=== PATIENT | male | born 1945 | race Native Hawaiian/Other Pacific Islander ===

== ENCOUNTER 2018-05-19 11:28 | Emergency (ER) | payer MEDICARE, OTHER ==
[~2018-05-19] VITALS: Ht 175.3 cm; Wt 73.0 kg
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
[2018-05-19] MEDS ORDERED: ATOR40TA PO (11:55)
[2018-05-19] MEDS ORDERED: ASPI81TA31 PO (11:55)
[2018-05-19] MEDS ORDERED: LISI-603 PO (11:55)
[2018-05-19] MEDS ORDERED: METO-356 PO (11:55)
[2018-05-19] MEDS ORDERED: APIX5TAB PO (11:55)
[2018-05-19] MEDS ORDERED: CEphaleXIN 500 MG CAPSULE PO ONE (12:15)
[2018-05-19] MEDS ORDERED: NEOMY/BACITRA/POLYMYXIN B OINT UD PACKET TP ONE ×2 (12:15→12:25)
[2018-05-19] MEDS ORDERED: LIDOCAINE HCL 1% 20 ML VIAL TP ONE (12:15)
[2018-05-19] MEDS ORDERED: CEphaleXIN 500 MG CAPSULE ONE (12:25)
[2018-05-19] MEDS ORDERED: ACETAMINOPHEN 325 MG TABLET PO ONE (13:30)
[2018-05-19] MEDS ORDERED: ACETAMINOPHEN 325 MG TABLET ONE (13:34)
--- NOTE | 2018-05-19 13:42 | NUR ---
Patient discharged to home in stable conditon. Written and verbal after care instructions given. Patient verbalizes understanding of instructions. PT D/C W/ PRESCRIPTIONS. ALL BELONGINGS W/ PT. PT SELF-AMBULATED W/O DIFFICULTY.
[2018-05-19 13:43] VITALS: BP 122/75
== END 2018-05-19 13:43 | disposition home or self-care (01) ==
LOC: ER 11:28
DX: S62.637B Displaced fracture of distal phalanx of left little finger, initial encounter for open fracture (principal); S61.213A Laceration without foreign body of left middle finger without damage to nail, initial encounter; S61.215A Laceration without foreign body of left ring finger without damage to nail, initial encounter; S61.217A Laceration without foreign body of left little finger without damage to nail, initial encounter; I48.91 Unspecified atrial fibrillation; Z79.82 Long term (current) use of aspirin; Z79.899 Other long term (current) drug therapy; Z95.0 Presence of cardiac pacemaker; W23.0XXA Caught, crushed, jammed, or pinched between moving objects, initial encounter; Y93.89 Activity, other specified; Y92.89 Other specified places as the place of occurrence of the external cause; Y99.8 Other external cause status
CPT/HCPCS: 12001; 29130; 73130; 99284; J3490; A4217; A4663